=== PATIENT | male | born 1985 | race Two or more races ===

== ENCOUNTER 2020-05-25 20:10 | Emergency (ER) | payer OTHER, SELFPAY ==
--- NOTE | ~2020-05-25 | CT_ITS ---
EXAMINATION: CT HEAD WITHOUT CONTRAST CLINICAL INFORMATION: Acute headache COMPARISON: None TECHNIQUE: Contiguous axial imaging was performed from the skull base to vertex without intravenous administration of contrast. This CT examination was performed using dose optimization techniques as appropriate, variously including the following: *Automated exposure control *Adjustment of mA and/or kV according to patient size (this includes techniques or standardized protocols for targeted exams where dose is matched to indication/reason for exam; i.e. extremities or head) *Use of iterative reconstruction technique DLP: 714 mGy-cm FINDINGS: There is no evidence of acute intracranial hemorrhage or territorial infarction. No abnormal mass effect or midline shift is seen. Jarrett to white matter differentiation is well preserved. No extra-axial fluid collections are identified. The ventricles are normal in size. There is no abnormal attenuation within the brain parenchyma. The osseous structures and soft tissues are normal. The mastoid air cells and visualized portions of the paranasal sinuses are well aerated. CT/CT head/brain wo con IMPRESSION: No acute intracranial pathology.
[2020-05-25 20:45] VITALS: BP 153/76; PULSE 84; RESP 16; TEMP 37.2; O2SAT 99; BMI 25.1
--- NOTE | 2020-05-25 21:40 | ED.GENADULT ---
HPI - General Adult General Chief complaint: Headache Stated complaint: headache Time Seen by Provider: 05/25/20 21:27 Source: patient Mode of arrival: ambulatory Limitations: no limitations History of Present Illness HPI narrative: 35-year-old male who presents emergency department for evaluation of headache. The patient states that he was incarcerated for 12 years and was released from [facility] approximately 1 year ago. He states that while he was in [facility] over the past 2 years he has developed intermittent headaches. He states that we get these headaches every 2-3 months. He states that over the last month he has been getting 2-3 headaches per week. He states that the headaches are located in both temporal areas of his scalp and in the frontal area of his scalp. States that the headache is a throbbing like sensation that can be moderate to severe in intensity and can last hours. 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 He states that yesterday he was at work any developed a gradual onset of headache, which he describes as a throbbing sensation located in his temporal areas and forehead, the headache was associated with dizziness. The headache was 8/10 at its worst. The headache lasted several hours. He states this morning when he woke up he again developed a similar headache and was unable to go to work so he came to the emergency department for evaluation. At the time of evaluation he states that his headache is 4/10. He denied fever, chills, chest pain, shortness of breath, nausea, vomiting, numbness, weakness, change in his vision. The patient did not taking medications for his headache. Related Data Allergies Allergy/AdvReac Type Severity Reaction Status Date / Time No Known Allergies Allergy Verified 05/25/20 20:51 Review of Systems Review of Systems: Yes all other systems are reviewed and are negative [facility] Past Medical History [facility] Narrative: Patient has no chronic medical problems, he does not take any medications. He states he smokes 1/2 pack of cigarettes per day for 1 year. He states he drinks alcohol on the weekends, he drinks heavily on the weekends. He smokes marijuana daily, he denies other drug use. Medical History (Updated 05/25/20 @ 22:23 by Jagdish Henderson MD) No known health problems Social History Social History Smoking Status: Current every day smoker Smoked in Last 30 Days: No Substance Use Type: Marijuana Advance Directives: No Advance Directives Information Provided: Yes Physical Exam Vital Signs: Vital Signs: Last Vital Signs Temp 98.9 F 05/25/20 20:45 Pulse 84 05/25/20 20:45 Resp 16 05/25/20 20:45 BP 153/76 H 05/25/20 20:45 Pulse Ox 99 05/25/20 20:45 Body Mass Index 25.1 Const: General: cooperative and healthy appearing Orientation/consciousness: oriented to person and oriented to place Limitations: no limitations HENMT: Head: Yes normal to inspection, Yes normocephalic and Yes atraumatic Ears: external ears normal General nose exam: Normal external nose present Face and sinus: Yes normal facial exam Mouth: Normal oral and palatal mucosa present Throat: Yes posterior oropharynx normal Eyes: Periorbital: periorbital findings normal Eyelids: Yes eyelids normal Conjunctivae: conjunctivae normal Sclerae: sclerae normal Corneas: corneas normal Pupils: Equal, round and reactive pupils present Direct Ophthalmoscopy: normal light reflex Neck: Neck: Yes full ROM, Yes no lymphadenopathy, Yes no meningeal signs, Yes trachea midline and Yes supple Chest: Chest palpation & inspection: normal inspection of the chest and normal palpation of entire chest wall Resp: Effort & Inspection: normal respiratory effort and able to speak in complete sentences Auscultation: clear to auscultation bilaterally Cardio: Rate: regular rate Rhythm: regular rhythm Heart sounds: S1 normal heart sound present, S2 normal heart sound present and no murmurs GI: Inspection: Yes normal to inspection Palpation (GI): Soft to palpation, nontender, no guarding, not rigid and No hepatosplenomegaly present : General: Yes no CVA tenderness Back/Spine/Pelvis: Back: no CVA tenderness Cervical Spine: normal cervical lordosis Thoracic/Lumbar Spine: thoracic and lumbar spine normal to inspection Skin: Lesions: no lesions Rashes: no rashes Wounds: no wounds Neuro: General: oriented to person, oriented to place and no meningeal signs Cranial nerves: Yes CN's II-XII intact bilaterally and Yes Equal, round and reactive pupils present Cognition (Neuro): normal cognition Motor exam (neuro): 5/5 motor strength present throughout Extrem: General: Yes normal to inspection and Yes full ROM Psych: Appearance: well kempt Mental Status: mental status grossly normal Speech and movement: Normal speech and movement present Affect: normal affect Attitude: cooperative Thought process: Normal thought process present Thought content: Normal thought content present Course Course Course Narrative: 35-year-old male who presents emergency department for evaluation of chronic headaches which has become worse over the past 2-3 weeks with increased frequency. Physical examination was unremarkable. I ordered a CT scan to rule out the possibility of brain pathology as the cause was headache. He was ordered to get ibuprofen 600 mg orally. 2220: The patient's CT scan was normal which is reassuring. I did discuss this with the patient. The patient was advised to take ibuprofen and Tylenol for his pain. He did have 1 elevated blood pressure and I told him he should try to get his blood pressure checked 3 times a week for the next 2 weeks to determine if he needs further treatment for blood pressure. He was given a note to return to work tomorrow without limitations. Discharge Plan Discharge Clinical Impression: Headache Patient Disposition: Home, Self-Care Instructions: Migraine Headache (ED) Additional Instructions: The CT scan of your brain was normal which is very reassuring. Your headaches are consistent with a migraine like headache. Take ibuprofen 200 mg pills, 3 pills every 6 hours as needed for pain. Take Tylenol (acetaminophen) 500 mg pills, 2 pills every 4 to 6 hours as needed for pain. You did have 1 elevated blood pressure here in the emergency department of 153/76 (normal is 120/80). This blood pressure does not count since you are having pain. You should try to check your blood pressure 3 times a week for the next 2 weeks and write them down. If you continued to have elevated blood pressures then you should follow-up with a primary care doctor to determine if you need treatment for high blood pressure. Follow-up with your doctor in 2 days. Please return to the emergency department if your symptoms get worse or if you develop any symptoms that are concerning to you.
[2020-05-25] MEDS: Ibuprofen 600 MG TABLET PO (22:03)
== END 2020-05-25 22:37 | disposition home or self-care (01) ==
PROVIDERS: Emergency Provider Emergency Medicine Emergency Medical Services
DX: R51.9 Headache, unspecified (principal); F17.200 Nicotine dependence, unspecified, uncomplicated; F12.90 Cannabis use, unspecified, uncomplicated
CPT/HCPCS: 70450; 99284

== ENCOUNTER 2021-08-25 23:38 | Emergency (ER) | payer SELFPAY ==
[2021-08-26 00:32] VITALS: BP 113/51; PULSE 53; RESP 20; TEMP 36.3; O2SAT 99; BMI 25.1
== END 2021-08-26 04:52 | disposition left against medical advice (07) ==
LOC: HO.ED 08-26 03:57
PROVIDERS: Emergency Provider Emergency Medicine
DX: F14.90 Cocaine use, unspecified, uncomplicated (principal); F19.90 Other psychoactive substance use, unspecified, uncomplicated
CPT/HCPCS: 99281